=== PATIENT | male | born 1940 | race Caucasian/White ===

== ENCOUNTER 2018-08-28 17:51 | Emergency (ER) | payer MEDICARE, BC ==
[~2018-08-28] VITALS: Ht 182.9 cm; Wt 104.3 kg
[~2018-08-28 17:51] MED LIST: ASPIRIN81 M2 PO; CALCIUM 600 +1 EAC1 PO; COZAAR 25 MG TA25 M1 PO; FOLIC ACID0.4 MG PO; LOPRESSOR50 PO; MAXZIDE-25 MG1 EACH PO; ROBAXIN 750 MG750 M1 PO; TURMERIC500 M2 PO; VALTREX 500 MG500 M1 PO; VITAMIN D3400 UNIT PO; ZANTAC 150MG T150 MG PO
[2018-08-28 18:22] LABS: URINE BILIRUBIN NEGATIVE (Negative); URINE BLOOD 3+ (Negative); URINE CLARITY SL CLOUDY; URINE COLOR RED; URINE GLUCOSE-RANDOM NEGATIVE (Negative); URINE KETONES NEGATIVE (Negative); URINE LEUKOCYTES-REFLEX NEGATIVE (Negative); URINE NITRITE-REFLEX NEGATIVE (Negative); URINE PROTEIN TRACE (Negative); URINE UROBILINOGEN 0.2 E.U./dl (0.2-1.0)
[2018-08-28 18:28] LABS: SQUAMOUS NONE SEEN /LPF (0-3); URINE RBC >20 Many /HPF (0-2); URINE WBC-REFLEX 6-15 Few /HPF (0-5)
[2018-08-28 18:29] LABS: BACTERIA-REFLEX None Seen /HPF (None Seen); CASTS None Seen /LPF (None Seen); CRYSTALS None Seen /LPF (None Seen)
[2018-08-28 18:39] LABS: ABSOLUTE EOSINOPHILS 0.1 thou/uL (0.0-0.7); ABSOLUTE LYMPHOCYTES 1.6 thou/uL (0.8-5.3); ABSOLUTE MONOCYTES 0.6 thou/uL (0.0-1.2); ABSOLUTE NEUTROPHILS 4.4 thou/uL (1.6-8.1); BASOPHILS 0.6 %; HEMATOCRIT 42.3 % (42.0-52.0); HEMOGLOBIN 14.6 gm/dL (14.0-18.0); LYMPHOCYTES 23.5 %; MCH 33.8 pg (26.0-34.0); MCHC 34.6 g/dL (28.0-37.0); MCV 97.5 fL (80.0-100.0); MONOCYTES 9.1 %; MPV 8.2 fl. (7.2-11.1); NUCLEATED RBCS 0 /100WBC; PLATELET COUNT* 174 thou/uL (150-400); POLYS 64.8 %; RBC 4.34 mil/uL (4.50-6.00); RDW-CV 13.3 % (10.5-14.5); WBC 6.8 thou/uL (4.0-11.0)
[2018-08-28 18:42] LABS: CALCIUM 8.5 mg/dL (8.5-10.1); CREATININE 1.1 mg/dL (0.6-1.3); POTASSIUM 3.6 mmol/L (3.5-5.1)
[2018-08-28 18:47] LABS: ALBUMIN 3.8 g/dL (3.4-5.0); TOTAL BILIRUBIN 0.4 mg/dL (<0.1-1.0); TOTAL PROTEIN 7.3 g/dL (6.4-8.2)
[2018-08-28 21:30] VITALS: BP 150/86
[2018-08-29] MEDS ORDERED: LOSARTAN POTAS100 MG PO (04:06)
[2018-08-29] MEDS ORDERED: UNICOMPLEX M TA1 TA1 PO (04:07)
[2018-08-29] MEDS ORDERED: OXYBUTYNIN 5 MG5 M2 PO (04:07)
[2018-08-29] MEDS ORDERED: ZANTAC300 MG PO (04:07)
[2018-08-29] MEDS ORDERED: OMEPRAZOLE MAGN20 MG PO (04:08)
== END 2018-08-28 21:38 | disposition home or self-care (01) ==
LOC: M.ERS 17:51
PROVIDERS: Nurse Practitioner Family
DX: R31.9 Hematuria, unspecified (principal); I10 Essential (primary) hypertension; Z88.0 Allergy status to penicillin; Z88.1 Allergy status to other antibiotic agents; Z88.2 Allergy status to sulfonamides; Z90.49 Acquired absence of other specified parts of digestive tract; Z95.5 Presence of coronary angioplasty implant and graft; Z85.46 Personal history of malignant neoplasm of prostate

== ENCOUNTER 2018-08-29 02:56 | Inpatient (IN) | payer MEDICARE, BC ==
[~2018-08-29] VITALS: Ht 182.9 cm; Wt 104.3 kg
[2018-08-29 03:35] VITALS: BP 131/82
--- NOTE | 2018-08-29 03:50 | NUR ---
UPON PLACEMENT OF THREE WAY BANERJEE CATH, PT HAD NO PRESENTATION OF URINE, PT HAD TO BE IRRIGATED WITH APPROX 100 ML OF STERILE NS TO ESTABLISH URINARY FLOW. URINE BRIGHT RED, WITH LARGE CLOTS PRESENT.
[2018-08-29 03:57] LABS: ABSOLUTE BASOPHILS 0.1 thou/uL (0.0-0.2); ABSOLUTE EOSINOPHILS 0.1 thou/uL (0.0-0.7); ABSOLUTE LYMPHOCYTES 1.2 thou/uL (0.8-5.3); ABSOLUTE MONOCYTES 0.6 thou/uL (0.0-1.2); ABSOLUTE NEUTROPHILS 6.1 thou/uL (1.6-8.1); BASOPHILS 0.6 %; EOSINOPHILS 1.3 %; HEMATOCRIT 39.6 % (42.0-52.0); HEMOGLOBIN 13.6 gm/dL (14.0-18.0); LYMPHOCYTES 15.1 %; MCH 33.6 pg (26.0-34.0); MCHC 34.4 g/dL (28.0-37.0); MCV 97.7 fL (80.0-100.0); MPV 8.2 fl. (7.2-11.1); NUCLEATED RBCS 0 /100WBC; PLATELET COUNT* 155 thou/uL (150-400); RBC 4.05 mil/uL (4.50-6.00); RDW-CV 13.1 % (10.5-14.5)
[2018-08-29 04:01] LABS: URINE CLARITY CLOUDY; URINE COLOR RED; URINE SPECIFIC GRAVITY 1.015 (1.005-1.030)
[2018-08-29 04:02] LABS: ACETEST (KETONE CONFIRMATORY) Negative (Negative); SSA (PROTEIN CONFIRMATORY) 2+ (APPROX. 10-100) mg/dL (Negative); URINE BILIRUBIN ND (Negative); URINE GLUCOSE-RANDOM ND (Negative); URINE KETONES ND (Negative); URINE PROTEIN ND (Negative); URINE REDUCING SUBSTANCE NEGATIVE (Negative)
[2018-08-29 04:03] LABS: ICTOTEST (BILI CONFIRMATORY) Negative (Negative); URINE BLOOD ND (Negative); URINE LEUKOCYTES-REFLEX ND (Negative); URINE NITRITE-REFLEX ND (Negative); URINE UROBILINOGEN ND E.U./dl (0.2-1.0)
[2018-08-29 04:04] LABS: CALCIUM 8.3 mg/dL (8.5-10.1); CREATININE 1.1 mg/dL (0.6-1.3); POTASSIUM 3.1 mmol/L (3.5-5.1)
[2018-08-29 04:05] LABS: SQUAMOUS 0-3 Few /LPF (0-3); URINE WBC-REFLEX 0-5 Rare /HPF (0-5)
[2018-08-29 04:06] LABS: PROTIME 10.3 Seconds (9.20-11.50)
[2018-08-29 04:06] LABS: BACTERIA-REFLEX 1-9 Few /HPF (None Seen); CASTS None Seen /LPF (None Seen); CRYSTALS None Seen /LPF (None Seen); MUCUS 0-3 Light strn/LPF (None Seen); URINE RBC >20 Many /HPF (0-2)
[2018-08-29] MEDS ORDERED: LOSARTAN POTAS100 MG PO (04:06)
[2018-08-29] MEDS ORDERED: ZANTAC300 MG PO (04:07)
[2018-08-29] MEDS ORDERED: UNICOMPLEX M TA1 TA1 PO (04:07)
[2018-08-29] MEDS ORDERED: OXYBUTYNIN 5 MG5 M2 PO (04:07)
[2018-08-29] MEDS ORDERED: OMEPRAZOLE MAGN20 MG PO (04:08)
[2018-08-29 05:08] VITALS: BP 106/65
--- NOTE | 2018-08-29 06:46 | NUR ---
ADMITTED TO 318 FROM ER, SEE ASSESSMENT. CBI INFUSING TO MAINTAIN URINE COLOR TRANSPARENT PINK TO RED IN COLOR. PT DENIES PAIN, SOA, AND ANY OTHER DISCOMFORT. 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 PT STATES HE DRINKS 3-4 VODKA BEVERAGES DAILY, "I BUY A HALF GALLON AND IT LASTS ME A WEEK." PT STATES HE HAS BEEN DRINKING THIS AMOUNT FOR YEARS. NO APPARENT SIGNS OF WITHDRAWL AT THIS TIME. CALL LIGHT WITHIN REACH.
[2018-08-29 08:00] VITALS: BP 134/76
[2018-08-29 15:15] VITALS: BP 134/80
--- NOTE | 2018-08-29 16:11 | NUR ---
SHIFT NOTE - PT WITH CBI INTO TRIPLE LUMEN BANERJEE. ATTEMPING TO TITRATE DOWN BUT URINE WITH PINK TINGE. IV INFILTRATED AND REPLACED. FAMILY PRESENT AT BEDSIDE FOR MOST OF THE DAY. PT IS VERY [place] BUT DOES HAVE HEARING AIDS. WILL CONTINUE TO MONITOR.
--- NOTE | 2018-08-29 16:46 | NUR ---
SW met with pt and pt family to complete initial assessment, introduce self, and SW role. Pt alert, oriented, pleasant. Pt lives with his dtr and dtr's family. Pt expressed having everything he needs and does not anticipate any dc needs at this time. SW to continue to follow to assist with safe dc planning.
--- NOTE | 2018-08-30 03:06 | NUR ---
ASSUMED CARE OF PT AT 1900. PT IS ALERT AND ORIENTED. VSS. PERRLA. UP AD FRIDA. GAIT IS STEADY. PT HAS URINARY CATHETER WITH CBI. URINE IS A LIGHT RED AT THIS TIME. PT IS SLEEPING QUIETLY IN BED. RESPIRATIONS ARE EVEN AND NONLABORED. WILL CONTINUE TO MONITOR PT.
[2018-08-30 05:06] LABS: HEMATOCRIT 38.7 % (42.0-52.0); HEMOGLOBIN 13.2 gm/dL (14.0-18.0); MCH 33.5 pg (26.0-34.0); MCHC 34.2 g/dL (28.0-37.0); MCV 98.1 fL (80.0-100.0); MPV 8.4 fl. (7.2-11.1); RBC 3.94 mil/uL (4.50-6.00); RDW-CV 13.3 % (10.5-14.5); WBC 7.3 thou/uL (4.0-11.0)
[2018-08-30 05:43] LABS: ALBUMIN 3.2 g/dL (3.4-5.0); CALCIUM 8.4 mg/dL (8.5-10.1); POTASSIUM 4.2 mmol/L (3.5-5.1); TOTAL BILIRUBIN 0.5 mg/dL (<0.1-1.0)
[2018-08-30 07:55] VITALS: BP 148/87
[2018-08-30 13:33] LABS: URINE BILIRUBIN NEGATIVE (Negative); URINE BLOOD 3+ (Negative); URINE CLARITY CLOUDY; URINE COLOR DARK YELLOW; URINE GLUCOSE-RANDOM 1+ (Negative); URINE KETONES NEGATIVE (Negative); URINE LEUKOCYTES-REFLEX TRACE (Negative); URINE NITRITE-REFLEX NEGATIVE (Negative); URINE PROTEIN NEGATIVE (Negative); URINE SPECIFIC GRAVITY 1.015 (1.005-1.030); URINE UROBILINOGEN 0.2 E.U./dl (0.2-1.0)
[2018-08-30 13:57] LABS: CASTS None Seen /LPF (None Seen); CRYSTALS None Seen /LPF (None Seen); MUCUS 0-3 Light strn/LPF (None Seen); SQUAMOUS NONE SEEN /LPF (0-3); URINE RBC >20 Many /HPF (0-2)
[2018-08-30 13:58] LABS: BACTERIA-REFLEX 1-9 Few /HPF (None Seen); URINE WBC-REFLEX 0-5 Rare /HPF (0-5)
[2018-08-30 16:02] VITALS: BP 142/83
--- NOTE | 2018-08-30 17:40 | NUR ---
PATIENT A&OX4, RA, IV RIGHT FOREARM FLUIDS INFUSSING. UP AD FRIDA, STEADY GAIT.NO C/O PAIN/N/V. CBI WITH THREE WAY BANERJEE. HAS HAD TO MANUAL IRRIGATE X2. CLOTS NOTED WITH IRRIGATION AND IN BANERJEE BAG. URINE IS DARK RED, BLOODY. PATIENT AND FAMILY CONCERNED WITH CYSTOSCOPY, WANTS DONE PRIOR TO DISCHARGE. NO OTHER CONCERNS AT THIS TIME. APPROPRIATE AND COOPORATIVE WITH CARE
[2018-08-30 19:45] VITALS: BP 132/71
--- NOTE | 2018-08-31 06:00 | NUR ---
PT SLEPT MOST OF SHIFT. ASSESSMENT DOCUMENTED. MEDS GIVEN PER E-MAR. IV PATENT, FLUIDS INFUSING. PT REPORTED HAVING A HEADACHE, DR NOTIFIED, ORDER FOR TYLENOL RECIEVED. CBI IN PLACE WITH PINK TINGED DRAINING IN BANERJEE. PT REQUESTED NOT TO HAVE SUPPOSITORY THIS SHIFT HE HAD A LARGE BM FROM THE MAG CIT[place]. WILL CONTINUE WITH PLAN OF CARE.
[2018-08-31 07:30] VITALS: BP 158/80
[2018-08-31 16:14] VITALS: BP 146/82
--- NOTE | 2018-08-31 17:18 | NUR ---
PATEINT A&MERA4, [facility], AIDES AT BEDSIDE. RA, IV RIGHT FOREARM FLUIDS INFUSSING. UP AD FRIDA, STEADY GAIT. C/O HEADACHE, RELIEF WITH MEDICATION. 3WAY BANERJEE CATHETER, WITH CBI AT SLOW GTT. URINE YELLOW, SMALL CLOTS NOTED X4. BM TODAY REFUSSING SUPPOSITORIES. PATIENT HAYDEE FOR CYSTOCOPY TOMORROW AT 0800. NO OTHER CONCERNS AT THIS TIME. APPROPRIATE AND COOPORATIVE WITH CARE.
[2018-08-31 20:05] VITALS: BP 163/84
[2018-09-01 05:12] VITALS: BP 163/84
[2018-09-01 07:32] VITALS: BP 157/97
--- NOTE | 2018-09-01 07:40 | NUR ---
PT SLEPT MOST OF SHIFT. ASSESSMENT DOCUMENTED. MEDS GIVEN PER E-MAR. IV PATENT, FLUIDS INFUSING. NO REPORTS OF PAIN. CBI IN PLACE. PT REMAINED NPO AFTER MIDNIGHT. AM MEDS GIVEN WITH SIP OF WATER. PREOP CHECKLIST COMPLETE. PT WENT DOWN TO PACU THIS AM VIA BED. WILL CONTINUE WITH PLAN OF CARE.
--- NOTE | 2018-09-01 10:11 | EKG ---
[place] [address] ELECTROCARDIOGRAM REPORT Name: PATTI NGUYEN Room: [address] ADM IN .R.#: [id number] Admission: 08/29/18 Attend Phys: Oly Springer MD Discharge: Date of : 42 Report #: [id number] THIS REPORT FOR: //name// [facility] Test Date: 2018-09-01 Test Time: 05:42:04 Pat Name: PATTI NGUYEN Department: Room: [address] Gender: M Foreign Exchange Student Coordinator: [facility] : 1940 Requested By: Naga Rubin Order Number: [id number] [place] MD: Herberth Harrell Measurements Intervals [place] Rate: 91 P: 72 ID: [id number] QRS: 83 QRSD: 149 T: 41 QT: 408 QTc: 503 Interpretive Statements Sinus rhythm Right bundle branch block Baseline wander in lead(s) V6 No previous ECG available for comparison Electronically Signed On 09-01-2018 10:11:19 CDT by Herberth Harrell [email or web address] <ELECTRONICALLY SIGNED> By: Herberth Harrell MD, [facility] 09/01/18 1011 [id number] [id number] Herberth Harrell MD, [facility] /EPI
[2018-09-01 10:30] VITALS: BP 171/80
[2018-09-02] VITALS: BP 134/83
--- NOTE | 2018-09-02 05:27 | NUR ---
PT SLEPT MOST OF SHIFT. ASSESSMENT DOCUMENTED. MEDS GIVEN PER E-MAR. IV PATENT, FLUIDS INFUSING. MEDS GIVEN PER E-MAR. BANERJEE DRAINING DEPENDANTLY. URINE PINK TINGED AT BEGINING OF SHIFT, NOW PALE YELLOW. NO REPORTS OF PAIN. WILL CONTINUE WITH PLAN OF CARE.
[2018-09-02 05:42] LABS: HEMATOCRIT 38.5 % (42.0-52.0); HEMOGLOBIN 13.1 gm/dL (14.0-18.0); MCH 33.5 pg (26.0-34.0); MCV 98.5 fL (80.0-100.0); MPV 8.6 fl. (7.2-11.1); RBC 3.91 mil/uL (4.50-6.00); RDW-CV 12.9 % (10.5-14.5); WBC 11.9 thou/uL (4.0-11.0)
[2018-09-02 05:52] LABS: CALCIUM 8.4 mg/dL (8.5-10.1); POTASSIUM 4.3 mmol/L (3.5-5.1)
--- NOTE | 2018-09-02 07:40 | NUR ---
CATHTER REMOVED. URINE IN CATHETER LIGHT YELLOW.
[2018-09-02 07:45] VITALS: BP 152/78
--- NOTE | 2018-09-02 10:11 | NUR ---
PT ENTCO2 DC PER PROTOCOL
[2018-09-02 12:36] VITALS: BP 152/78
[2018-09-02] MEDS ORDERED: KEFLEX500 M1 PO (12:47)
--- NOTE | 2018-09-02 14:12 | NUR ---
PATIENT A&OX4, 2L O2 VIA NC, IV RIGHT FOREARM FLUIDS INFUSSING. IV DISCONTINUED, CATHETER FULLY INTACT. VOIDING PER URINAL, POST VOID BLADDER SCAN, 14ML NOTED. NO C/O PIAN/N/V. UP AD FRIDA, STEADY GAIT. REVIEWED DISCHARGE PAPERWORK WITH PATIENT, VERBALIZES UNDERSTANDING, ALL QUESTIONS AND CONCERNS ANSWERED. NO OTHER CONCERNS AT THIS TIME. APPROPRIATE AND COOPORATIVE WITH CARE. PATIENT LEFT FLOOR AT 1405 AMBULATORY WITH DAUGHTER. ALL BELONGINGS TAKEN, NOTHING LEFT BEHIND.
--- NOTE | 2018-09-03 10:09 | PATH ---
[address] [address] PATHOLOGY RPT PROCEDURE Name: ERASMO NGUYEN Room: [address] IN [facility]#: [id number] Admission: 08/29/18 Date of : 42 Discharge: 09/02/18 Report #: [id number] Path Case #: [id number] [facility] Accession Number: [id number] . 01 Material submitted: . PART A: BLADDER LESION POSTERIOR WALL PART B: BLADDER TUMOR ANTERIOR WALL . 01 Clinical history: . Bladder bleeding . 02 Diagnosis: A. 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 See comment. . B. 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 - Benign muscularis propria present. See comment. . (BHARGAVI:jonathan; 09/02/18) QL/09/02/2018 . 02 Comment: No vascular invasion is identified. Specimens A and B reviewed with Dr. Az Angel who agrees with the diagnoses. . (BHARGAVI:mml; 09/02/18) . 02 Electronically signed: . Cody Velazquez MD, Pathologist NPI- [id number] . 01 Gross description: . A. The specimen is received in formalin, labeled "Erasmo Nguyen, bladder erosion posterior wall", are three ravi soft tissues measuring 0.8 x 0.4 x 0.1 cm in aggregate, entirely submitted in A1. . B. The specimen is received in formalin, labeled "Erasmo Nguyen, bladder tumor anterior wall", are multiple ravi rubbery soft tissues measuring 1.5 x 1.0 x 0.3 cm in aggregate, entirely submitted in B1. ([facility]; 09/01/2018) SHS/SHS . 02 Pathologist provided ICD-10: C67.9, N30.00, N30.20 [place] [address] PATHOLOGY RPT PROCEDURE Name: ERASOM NGUYEN Room: [address] IN ..#: [id number] Admission: 08/29/18 Date of : 42 Discharge: 09/02/18 Report #: [id number] Path Case #: [id number] . 02 CPT . [id number], [id number] Specimen Comment: A courtesy copy of this report has been sent to Specimen Comment: [phone], . Specimen Comment: Report sent to / DR LEMUS Performed at: [address], [place], [place] [id number] MD Tod Fair MD Phone: [phone] Performed at: 02 [facility] [address], [place], [place] [id number] MD Cody Velazquez MD Phone: [phone]
--- NOTE | 2018-09-05 16:09 | OP ---
[facility] [address] [place] [address] OPERATIVE REPORT Name: PATRICKPATTI Room: [address]R.#: [id number] Admission: 08/29/18 Attend Phys: Oly Springer MD Discharge: 09/02/18 Date of : 42 Report #: [id number] THIS REPORT FOR: //name// CC: Oly Springer Physician staff DATE OF SERVICE: 09/01/2018 PREOPERATIVE DIAGNOSES: Gross hematuria with clot retention, possible bladder lesion. POSTOPERATIVE DIAGNOSES: Gross hematuria and bladder tumor. PROCEDURE: Cystoscopy with transurethral resection of small bladder tumor and biopsies of bladder lesion. SURGEON: Jacob Garibay M.D. ANESTHESIA: General. ESTIMATED BLOOD LOSS: Minimal. DRAINS: A 22-Guamanian 3-way urethral catheter. SPECIMENS: 1. Bladder lesion, posterior wall. 2. Bladder tumor, anterior wall. COMPLICATIONS: None. INDICATIONS: This is a 78-year-old male with clot retention. See the consultation and progress notes. Possible etiologies of the bleeding were discussed with the patient and his family at length, and cystoscopy with clot evacuation and possible transurethral resection of bladder tumor was recommended. Risks of the procedure were explained including but not limited to bleeding, infection, anesthesia, cardiopulmonary and vascular events, injuries to urethra, bladder, ureters, possible persistent or recurrent retention, possible need for further procedures. The patient and family voiced clear understanding, wants to proceed. DESCRIPTION OF PROCEDURE: The patient was pretreated with IV Cipro. After induction of general anesthesia, he was positioned, prepped and draped in the lithotomy position. Time out was performed. Cystourethroscopy was performed with a 22-Guamanian sheath. The anterior urethra was normal. The posterior urethra is status post radical prostatectomy with no visible urethral lesion. The anastomosis is easily passable with a 22-Guamanian sheath[place] [address] OPERATIVE REPORT Name: PATTI NGUYEN Lewis Room: [address]#: [id number] Admission: 08/29/18 Attend Phys: Oly Springer MD Discharge: 09/02/18 Date of : 42 Report #: [id number] systematically examined with 30 and 70 degree scopes. The ureteral orifices are orthotopic. No blood was seen from either. There is an erythematous lesion along the posterior wall, which may represent catheter edema/irritation. There is a small papillary tumor just inside the bladder neck anteriorly. I elected to biopsy the erythematous lesion with forceps and data entry representative specimens were sent for histologic analysis and labeled bladder lesion posterior wall. The scope was then exchanged for a 24-Guamanian resectoscope apparatus. Loop cautery was used to coagulate the biopsy sites and fulgurate the remaining erythematous lesion. Attention was then turned to resection of the anterior tumor, which was 1-2 cm across. This was resected with cutting current using a loop in its entirety. Coagulating current was used to obtain hemostasis. Health Services Information Specialist specimens were sent for histologic analysis, labeled bladder tumor, anterior wall. Repeat examination reveals that both lesion sites are hemostatic, and there is no residual tumor. Resection and fulguration are well away from the ureteral orifices and the expected course of the ureters. Hemostasis was excellent. The bladder was left partially filled, and the scope was removed. Bimanual exam does not reveal any pelvic mass. A 22-Guamanian 3-way urethral catheter was placed, and the returning fluid was clear. The catheter was secured with the balloon, and the irrigation port was capped. The patient tolerated the procedure well and was taken to the recovery room in stable condition. Plan will be for him to undergo a voiding trial tomorrow if he progresses well. <ELECTRONICALLY SIGNED> By: Jacob Garibay MD 09/05/18 1609 0915 [id number] Garibay MD /nt
== END 2018-09-02 14:05 | disposition home or self-care (01) | DRG 669 ==
LOC: M.ERS 02:56 → M.3W 04:07 → M.TBA-ER 04:07 → M.3W 05:13
PROVIDERS: Emergency Medicine; Internal Medicine; Urology; ADMIT Internal Medicine
PROC: 0TBC8ZZ Excision of Bladder Neck, Via Natural or Artificial Opening Endoscopic (ICD-10-PCS; principal; 2018-08-29)
PROC: 0TBB8ZX Excision of Bladder, Via Natural or Artificial Opening Endoscopic, Diagnostic (ICD-10-PCS; principal; 2018-08-29)
DX: D49.4 Neoplasm of unspecified behavior of bladder (principal); E87.1 Hypo-osmolality and hyponatremia; R31.0 Gross hematuria; I10 Essential (primary) hypertension; N32.89 Other specified disorders of bladder; R33.9 Retention of urine, unspecified; K59.00 Constipation, unspecified; Z90.49 Acquired absence of other specified parts of digestive tract; Z88.0 Allergy status to penicillin; Z88.2 Allergy status to sulfonamides; Z88.8 Allergy status to other drugs, medicaments and biological substances; Z85.46 Personal history of malignant neoplasm of prostate; Z90.79 Acquired absence of other genital organ(s); Z79.899 Other long term (current) drug therapy; Z79.82 Long term (current) use of aspirin; Z92.3 Personal history of irradiation; Z87.01 Personal history of pneumonia (recurrent); Z87.891 Personal history of nicotine dependence